=== PATIENT | female | born 1995 | race Caucasian/White ===

== ENCOUNTER 2021-09-21 14:51 | Inpatient (IN) | payer BC, SELFPAY ==
[2021-09-21] MEDS ORDERED: Promethazine HCl 25 MG/ML VIAL IM PRN ×2 (15:32→18:10)
[2021-09-21] MEDS ORDERED: Ondansetron PF 4 MG/2 ML Vial IVP PRN ×2 (15:32→18:10)
[2021-09-21] MEDS ORDERED: Calcium Gluc 4.6 MEQ/10 ML (100 MG/ML) SLOW IVP PRN ×2 (15:32→18:10)
[2021-09-21] MEDS ORDERED: hydrALAZINE 20 MG/ML VIAL SLOW IVP PRN ×2 (15:32→18:10)
[2021-09-21 17:20] LABS: Hemoglobin 11.9 g/dL (12.0-15.5); Mean Corpuscular HGB CONC 33.7 g/dL (32.0-36.0); Mean Corpuscular Hemoglobin 29.2 pg (27.0-33.0); Mean Corpuscular Volume 86.5 fl (81.6-98.3); Mean Platelet Volume 12.2 fl (7.4-10.4); Platelet Count 149 10x3/uL (150-450); RBC Distribution Width 13.8 % (11.5-14.5); Red Blood Cell (RBC) Count 4.08 10x6/uL (3.90-5.03); White Blood Cell (WBC) Count 9.6 10x3/uL (3.5-10.5)
[2021-09-21 17:24] LABS: ALT (SGPT) 29 U/L (8-55); AST (SGOT) 32 U/L (5-34); Albumin 3.5 g/dL (3.5-5.0); Alkaline Phosphatase 87 U/L (40-110); Anion Gap 13 mmol/L (10-20); BUN (Urea Nitrogen) 10 mg/dL (7.0-18.7); Bilirubin, Total 0.7 mg/dL (0.2-1.2); Calc. Creatinine Clearance 0 mL/min (70-130); Calcium 8.4 mg/dL (7.8-10.44); Carbon Dioxide 19 mmol/L (22-29); Chloride 110 mmol/L (98-107); Globulin 2.3 g/dL (2.4-3.5); Glucose 94 mg/dL (70-105); Potassium 4.1 mmol/L (3.5-5.1); Protein, Total 5.8 g/dL (6.0-8.3); Sodium 138 mmol/L (136-145)
[2021-09-21 17:44] LABS: Hep B Surf Ag Non-Reactive S/CO (NonReactive); Syphilis Antibody Nonreactive (Nonreactive); Syphilis Antibody Index 0.06 S/CO (<1.00 Non-Reactive)
[2021-09-21 17:45] LABS: HBSAg Index 0.32 S/CO (0-0.99)
[2021-09-21] MEDS ORDERED: Betamet Acet/Betamet Na Ph 30 MG/5 ML VIAL IM SCH (18:30)
[2021-09-21] MEDS ORDERED: Betamet Acet/Betamet Na Ph 30 MG/5 ML VIAL ONE (18:32)
[2021-09-21 18:41] VITALS: BMI 34.7
[2021-09-21 19:27] LABS: HIV (1/2) Antibody/Antigen NonReactive (NonReactive); HIV 1/2 INDEX 0.07 S/CO (<1.00)
[2021-09-21 20:15] LABS: SARS-CoV-2 NAA Rapid Test Not Detected (NotDetected)
[2021-09-22 05:57] LABS: Mean Corpuscular HGB CONC 33.2 g/dL (32.0-36.0); Mean Corpuscular Hemoglobin 29.4 pg (27.0-33.0); Mean Corpuscular Volume 88.5 fl (81.6-98.3); Mean Platelet Volume 11.9 fl (7.4-10.4); Platelet Count 163 10x3/uL (150-450); RBC Distribution Width 13.5 % (11.5-14.5); Red Blood Cell (RBC) Count 4.08 10x6/uL (3.90-5.03); White Blood Cell (WBC) Count 11.3 10x3/uL (3.5-10.5)
[2021-09-22 06:17] LABS: ALT (SGPT) 27 U/L (8-55); AST (SGOT) 25 U/L (5-34); Albumin 3.4 g/dL (3.5-5.0); Alkaline Phosphatase 94 U/L (40-110); Anion Gap 15 mmol/L (10-20); BUN (Urea Nitrogen) 11 mg/dL (7.0-18.7); Calc. Creatinine Clearance 213 mL/min (70-130); Calcium 8.5 mg/dL (7.8-10.44); Carbon Dioxide 18 mmol/L (22-29); Chloride 109 mmol/L (98-107); Globulin 2.3 g/dL (2.4-3.5); Glucose 102 mg/dL (70-105); Potassium 4.5 mmol/L (3.5-5.1); Protein, Total 5.7 g/dL (6.0-8.3); Sodium 137 mmol/L (136-145)
[2021-09-22 16:04] LABS: Protein, Urine 12 mg/dL (1-14)
[2021-09-22 16:13] LABS: Protein - 24 Hr 138 mg/24 hr (Less than 300); Urine Total Volume 1150 mL (600-1600)
== END 2021-09-22 18:30 | disposition home or self-care (01) | DRG 833 ==
LOC: CSHLD/OP 14:51 → CSHLD 18:11 → UNDOADMIN 09-22 07:43 → CSHLD 09-22 07:43
PROVIDERS: ADMIT Student in an Organized Health Care Education/Training Program; ATTEND Student in an Organized Health Care Education/Training Program
DX: O13.3 Gestational [pregnancy-induced] hypertension without significant proteinuria, third trimester (principal); O40.3XX0 Polyhydramnios, third trimester, not applicable or unspecified; Z3A.35 35 weeks gestation of pregnancy; Q27.0 Congenital absence and hypoplasia of umbilical artery; O99.891 Other specified diseases and conditions complicating pregnancy; Z20.822 Contact with and (suspected) exposure to COVID-19; O32.2XX0 Maternal care for transverse and oblique lie, not applicable or unspecified
CPT/HCPCS: 0240U; 76819; 80053; 81003; 82570; 84156; 85027; 86780; 86850; 86870; 86900; 86901; 87340; 87389; J0702

== ENCOUNTER 2021-10-03 13:06 | Outpatient (CLI) | payer BC ==
[2021-10-04 13:28] LABS: SARS-CoV-2 PCR by NAA Not Detected (NotDetected)
== END 2021-10-03 13:07 | disposition home or self-care (01) ==
LOC: CSHLAB 13:06
PROVIDERS: ATTEND Student in an Organized Health Care Education/Training Program
DX: Z01.812 Encounter for preprocedural laboratory examination (principal); Z20.822 Contact with and (suspected) exposure to COVID-19
CPT/HCPCS: U0003; U0005

== ENCOUNTER 2021-10-06 05:21 | Inpatient (IN) | payer BC, SELFPAY ==
[2021-10-06] MEDS ORDERED: Famotidine/PF 20 mg/2ml Vial SLOW IVP PRN (06:08)
[2021-10-06] MEDS ORDERED: Bicitra 30 ML UDCUP PO PRN (06:08)
[2021-10-06] MEDS ORDERED: Lactated Ringer's 1,000 ML IV SCH (06:08)
[2021-10-06] MEDS ORDERED: Promethazine HCl 25 MG/ML VIAL IM PRN ×3 (06:08→10:43)
[2021-10-06] MEDS ORDERED: CEFAZOLIN 2 GM in Premix Bag 1 BAG IVPB SCH (06:08)
[2021-10-06] MEDS ORDERED: Ondansetron PF 4 MG/2 ML Vial IVP PRN ×3 (06:08→10:43)
[2021-10-06] MEDS ORDERED: hydrALAZINE 20 MG/ML VIAL SLOW IVP PRN ×2 (06:08→10:43)
[2021-10-06 06:13] VITALS: BMI 34.7
[2021-10-06 06:40] LABS: Hemoglobin 12.7 g/dL (12.0-15.5); Mean Corpuscular HGB CONC 33.2 g/dL (32.0-36.0); Mean Corpuscular Hemoglobin 29.2 pg (27.0-33.0); Mean Corpuscular Volume 87.8 fl (81.6-98.3); Platelet Count 178 10x3/uL (150-450); Red Blood Cell (RBC) Count 4.35 10x6/uL (3.90-5.03); White Blood Cell (WBC) Count 13.2 10x3/uL (3.5-10.5)
[2021-10-06 07:07] LABS: Hep B Surf Ag Non-Reactive S/CO (NonReactive)
[2021-10-06 07:08] LABS: Syphilis Antibody Nonreactive (Nonreactive); Syphilis Antibody Index 0.07 S/CO (<1.00 Non-Reactive)
[2021-10-06] MEDS ORDERED: Morphine PF 10 MG/10 ML VIAL ONE (07:12)
[2021-10-06] MEDS ORDERED: PHENYLEPHRINE-NS 100 MCG/ML 10 ML SYRINGE ONE (07:13)
[2021-10-06] MEDS ORDERED: Oxytocin 10 UNITS/ML VIAL ONE ×2 (07:13→08:15)
[2021-10-06] MEDS ORDERED: Phenylephrine 40 MG/NS 250 ML 250 ML ONE (07:13)
[2021-10-06 07:46] LABS: HBSAg Index 0.22 S/CO (0-0.99)
[2021-10-06] MEDS ORDERED: Misoprostol 200 MCG TAB ONE ×2 (08:13)
[2021-10-06] MEDS ORDERED: Ondansetron PF 4 MG/2 ML Vial ONE (08:18)
[2021-10-06] MEDS ORDERED: Ondansetron HCl/PF 4 MG/2 ML Vial IVP PRN (08:49)
[2021-10-06] MEDS ORDERED: Naloxone HCl 0.4 mg/ml Vial IV PRN (08:49)
[2021-10-06] MEDS ORDERED: Promethazine HCl 25 MG SUPP PR PRN (08:49)
[2021-10-06] MEDS ORDERED: HYDROmorphone 2 MG/ML VIAL SLOW IVP PRN (08:49)
[2021-10-06] MEDS ORDERED: Naloxone HCl 0.4 mg/ml Vial IVP PRN ×2 (08:49)
[2021-10-06] MEDS ORDERED: Hydrocerin (Eucerin) Cream 120 gm Jar TOP PRN (08:49)
[2021-10-06] MEDS ORDERED: Fentanyl 100 MCG/2 ML VIAL SLOW IVP PRN (08:49)
[2021-10-06] MEDS ORDERED: diphenhydrAMINE 50 MG/ML VIAL IVP PRN (08:49)
[2021-10-06] MEDS ORDERED: Meperidine HCl/PF 25 MG/ML VIAL SLOW IVP PRN (08:49)
[2021-10-06] MEDS ORDERED: Communication Order-Pharmacy FS SCH (09:00)
[2021-10-06 09:18] LABS: ALT (SGPT) 13 U/L (8-55); AST (SGOT) 12 U/L (5-34); Albumin 3.8 g/dL (3.5-5.0); Alkaline Phosphatase 123 U/L (40-110); Anion Gap 16 mmol/L (10-20); BUN (Urea Nitrogen) 10 mg/dL (7.0-18.7); Bilirubin, Total 1.2 mg/dL (0.2-1.2); Calc. Creatinine Clearance 228 mL/min (70-130); Calcium 8.9 mg/dL (7.8-10.44); Carbon Dioxide 18 mmol/L (22-29); Chloride 106 mmol/L (98-107); Globulin 2.6 g/dL (2.4-3.5); Glucose 89 mg/dL (70-105); Potassium 4.7 mmol/L (3.5-5.1); Protein, Total 6.4 g/dL (6.0-8.3); Sodium 135 mmol/L (136-145)
[2021-10-06] MEDS ORDERED: Meperidine HCl/PF 25 MG/ML VIAL ONE (10:02)
[2021-10-06] MEDS ORDERED: NS w/ Oxytocin 30 units 500 ML ONE (10:09)
[2021-10-06] MEDS ORDERED: Carboprost 250 MCG/ML AMP ONE ×2 (10:29→10:38)
[2021-10-06] MEDS ORDERED: diphenhydrAMINE 25 MG CAP PO PRN (10:43)
[2021-10-06] MEDS ORDERED: Lanolin Ointment 7 GM TUBE TOP PRN (10:43)
[2021-10-06] MEDS ORDERED: Acetaminophen 325 MG TAB PO PRN (10:43)
[2021-10-06] MEDS ORDERED: Simethicone Chewable 80 MG TAB PO PRN (10:43)
[2021-10-06] MEDS ORDERED: Boostrix 0.5 ML (Tdap) VIAL IM ONE (10:43)
[2021-10-06] MEDS ORDERED: Bisacodyl 10 MG SUPP PR PRN (10:43)
[2021-10-06] MEDS: Ketorolac Tromethamine 30 MG/ML VIAL IVP PRN ×2 (11:33→20:18)
[2021-10-06] MEDS ORDERED: Ferrous Sulfate 325 MG TAB PO SCH (12:00)
[2021-10-06] MEDS ORDERED: Prenatal Vitamin 1 TAB PO SCH (12:00)
[2021-10-06] MEDS ORDERED: Docusate Calcium (SURFAK) 240 MG CAP PO SCH (12:00)
[2021-10-06] MEDS: Docusate Calcium (SURFAK) 240 MG CAP PO SCH (20:19)
[2021-10-06] MEDS ORDERED: HYDROcodone/Acetaminophen 5/325 mg Tablet PO PRN (21:00)
[2021-10-06] MEDS ORDERED: Zolpidem Tartrate 5 MG TAB PO PRN (21:00)
[2021-10-06] MEDS: Ferrous Sulfate 325 MG TAB PO SCH (22:33)
[2021-10-07] MEDS: Ketorolac Tromethamine 30 MG/ML VIAL IVP PRN (03:45)
[2021-10-07 06:53] LABS: Hemoglobin 9.1 g/dL (12.0-15.5); Mean Corpuscular HGB CONC 33.6 g/dL (32.0-36.0); Mean Corpuscular Hemoglobin 29.4 pg (27.0-33.0); Mean Corpuscular Volume 87.7 fl (81.6-98.3); Mean Platelet Volume 12.7 fl (7.4-10.4); Platelet Count 140 10x3/uL (150-450); Red Blood Cell (RBC) Count 3.09 10x6/uL (3.90-5.03); White Blood Cell (WBC) Count 11.7 10x3/uL (3.5-10.5)
[2021-10-07] MEDS: Docusate Calcium (SURFAK) 240 MG CAP PO SCH ×2 (08:37→21:32)
[2021-10-07] MEDS: HYDROcodone/Acetaminophen 5/325 mg Tablet PO PRN ×3 (08:37→22:55)
[2021-10-07] MEDS: Ferrous Sulfate 325 MG TAB PO SCH ×2 (08:38→21:32)
[2021-10-07] MEDS: Prenatal Vitamin 1 TAB PO SCH (08:41)
[2021-10-07] MEDS: Ibuprofen 800 MG TAB PO SCH ×2 (13:42→21:32)
[2021-10-08] MEDS: HYDROcodone/Acetaminophen 5/325 mg Tablet PO PRN (05:46)
[2021-10-08] MEDS: Ibuprofen 800 MG TAB PO SCH ×2 (05:46→14:14)
[2021-10-08] MEDS: Docusate Calcium (SURFAK) 240 MG CAP PO SCH (08:46)
[2021-10-08] MEDS: Ferrous Sulfate 325 MG TAB PO SCH (08:46)
[2021-10-08] MEDS: Prenatal Vitamin 1 TAB PO SCH (08:46)
[2021-10-08 13:11] VITALS: BP 122/84; TEMP 98.2
== END 2021-10-08 15:05 | disposition home or self-care (01) | DRG 787 ==
LOC: CSHLD 05:21 → CSHPED 10:50
PROVIDERS: ADMIT Student in an Organized Health Care Education/Training Program; ATTEND Student in an Organized Health Care Education/Training Program
PROC: 10D00Z1 Extraction of Products of Conception, Low, Open Approach (ICD-10-PCS; principal; 2021-10-06)
DX: O13.4 Gestational [pregnancy-induced] hypertension without significant proteinuria, complicating childbirth (principal); Z3A.37 37 weeks gestation of pregnancy; Z37.0 Single live birth; D62 Acute posthemorrhagic anemia; O40.3XX0 Polyhydramnios, third trimester, not applicable or unspecified; O35.8XX0 Maternal care for other (suspected) fetal abnormality and damage, not applicable or unspecified; O32.2XX0 Maternal care for transverse and oblique lie, not applicable or unspecified; O34.03 Maternal care for unspecified congenital malformation of uterus, third trimester; Q51.3 Bicornate uterus; O90.81 Anemia of the puerperium
CPT/HCPCS: 36415; 51702; 80053; 85027; 86780; 86850; 86870; 86900; 86901; 87340; J0690; J1885; J2175; J2274; J2405; J2590; J3490; J7120; U0003; U0005